=== PATIENT | male | born 1940 | race African-American/Black ===

== ENCOUNTER 2019-05-24 15:38 | Inpatient (IN) | payer OTHER ==
[~2019-05-24] VITALS: Ht 177.8 cm; Wt 91.5 kg
[2019-05-24 15:45] VITALS: BP 106/55
[2019-05-24 16:28] LABS: ABSOLUTE NEUTROPHILS 8.8 thou/uL (1.4-8.2); BASOPHILS 0.4 % (0.0-2.0); EOSINOPHILS 0.2 % (0.0-3.0); HEMATOCRIT 45.1 % (42.0-52.0); HEMOGLOBIN 14.9 gm/dL (14.0-18.0); LYMPHOCYTES 6.8 % (24.0-44.0); MCH 30.8 pg (26.0-34.0); MCV 93.4 fL (80.0-100.0); MONOCYTES 2.5 % (1.0-8.0); PLATELET COUNT 158 thou/uL (150-400); POLYS 90.1 % (36.0-66.0); RBC 4.83 mil/uL (4.50-6.00); RDW 15.4 % (10.5-14.5); WBC 9.8 thou/uL (4.0-11.0)
[2019-05-24 16:39] LABS: CALCIUM 8.5 mg/dL (8.5-10.1); CREATININE 3.4 mg/dL (0.7-1.3); POTASSIUM 3.3 mmol/L (3.5-5.1)
[2019-05-24 16:45] LABS: ALBUMIN 3.2 g/dL (3.4-5.0); TOTAL BILIRUBIN 0.6 mg/dL (<0.1-1.0); TOTAL PROTEIN 6.9 g/dL (6.4-8.2)
[2019-05-24 16:47] LABS: LIPASE 55 U/L (73-393); TROPONIN-I <0.06 ng/mL (<0.06)
[2019-05-24 16:48] LABS: APTT 31.6 Seconds (24.5-32.8); INR 1.2; PROTIME 11.9 Seconds (9.3-11.4)
[2019-05-24] MEDS ORDERED: SEVELAMER HCL800 MG PO (18:59)
[2019-05-24] MEDS ORDERED: NEURONTIN 300300 M1 PO (19:01)
[2019-05-24] MEDS ORDERED: RENA-VITE RX T1 EACH PO (19:01)
[2019-05-24] MEDS ORDERED: ELIQUIS2.5 MG PO (19:02)
[2019-05-24] MEDS ORDERED: ALLOPURINOL 10100 M3 PO (19:02)
[2019-05-24] MEDS ORDERED: OCUFLOX5 ML OPHTHALMIC (19:03)
[2019-05-24 19:24] VITALS: BP 103/50
[2019-05-24 19:43] VITALS: BP 101/58
--- NOTE | 2019-05-24 19:44 | NUR ---
[facility] [phone]
[2019-05-24 19:46] LABS: CHOLESTEROL 112 mg/dL (<200); HDL CHOLESTEROL 44 mg/dL (>40); LDL CHOLESTEROL 57 mg/dL (<100); TC:HDL 2.5 Ratio (Not establshd); TRIGLYCERIDE 57 mg/dL (<150); VLDL 11 mg/dL (<40)
[2019-05-24 19:47] LABS: SERUM ASSESSMENT Clear
[2019-05-24 20:11] VITALS: BP 119/67
[2019-05-24 20:11] LABS: TSH 2.361 uIU/mL (0.358-3.740)
[2019-05-24 23:20] VITALS: BP 88/43
[2019-05-25 04:44] VITALS: BP 82/42
[2019-05-25 05:07] LABS: GLYCOHEMOGLOBIN (HGB A1C) 5.7 % (4.8-5.6)
[2019-05-25 05:26] LABS: BASOPHILS 0.2 % (0.0-2.0); EOSINOPHILS 0.6 % (0.0-3.0); LYMPHOCYTES 11.1 % (24.0-44.0); MCH 31.2 pg (26.0-34.0); MCHC 33.1 g/dL (28.0-37.0); MCV 94.3 fL (80.0-100.0); MONOCYTES 11.8 % (1.0-8.0); PLATELET COUNT 140 thou/uL (150-400); POLYS 76.3 % (36.0-66.0); RBC 4.14 mil/uL (4.50-6.00); RDW 15.1 % (10.5-14.5); WBC 10.5 thou/uL (4.0-11.0)
[2019-05-25 05:33] LABS: HEMOGLOBIN 12.9 gm/dL (14.0-18.0)
[2019-05-25 05:49] LABS: ALBUMIN 2.5 g/dL (3.4-5.0); CALCIUM 8.4 mg/dL (8.5-10.1); MAGNESIUM 1.9 mg/dL (1.8-2.4); PHOSPHORUS 3.8 mg/dL (2.5-4.9); TOTAL BILIRUBIN 0.5 mg/dL (<0.1-1.0); TOTAL PROTEIN 6.2 g/dL (6.4-8.2)
[2019-05-25 05:54] LABS: CREATININE 4.5 mg/dL (0.7-1.3)
--- NOTE | 2019-05-25 06:37 | NUR ---
ASSUMED CARE OF PATIENT FROM ER. ADMISSION COMPLETE. DIALYSIS NEEDLE STILL IN LEFT ARM. DR TANG ABSNatalia IN TO SEE PATIENT. REQUESTED HOSPITALIST TO DC PATIENT BACK TO [facility]. WILL LET AM NURSE KNOW. NO S/S OF INFECTION.
[2019-05-25 08:02] VITALS: BP 97/42
[2019-05-25 08:48] VITALS: BP 95/57
[2019-05-25 11:58] VITALS: BP 99/51
--- NOTE | 2019-05-25 12:13 | EKG ---
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: [facility] : 1940 Requested By: Aislinn Mora Order Number: [id number] MD: Manish Eaton Measurements Intervals [place] Rate: 89 P: -41 MA: 243 QRS: -58 QRSD: 132 T: 130 QT: 400 QTc: 487 Interpretive Statements Sinus rhythm Prolonged MA interval Left bundle branch block No previous ECG available for comparison Electronically Signed On 05-25-2019 12:12:13 CDT by Manish Eaton [email or web address] <ELECTRONICALLY SIGNED> By: Manish Eaton MD 05/25/19 1212 1554 1554 Manish Eaton MD /ROMEO
[2019-05-25 15:34] VITALS: BP 106/62; BP 115/59; BP 95/54
--- NOTE | 2019-05-25 18:09 | NUR ---
ASSUMMED PT CARE AT APPROXIMATELY 0700. PT A&O X4 AND OCCASIONALLY FORGETFUL. ASSESSMENT CHARTED. FALL PRECAUTIONS IN PLACE. PT DENIES HAVING CHEST PAIN. PT DENIES HAVING ACUTE PAIN. EDUCATED PT AND PT'S FAMILY ABOUT POC. PT AND PT'S FAMILY STATED UNDERSTANDING AND DENIED HAVING FURTHER QUESTIONS. INFORMED DR. BOONE OF PT'S HYPOGLYCEMIA AND HYPOTENSION. DR. BOONE STATED UNDERSTANDING. DR. BOONE ORDERED NEW MEDICATIONS. NEW MEDS IMPLEMENTED. INFORMED DR. BOONE OF PT'S ORTHOSTATIC BP. DR. BOONE STATED UNDERSTANDING AND DENIED HAVING NEW ORDERS. MRI AUTHORIZATION SHEET SENT TO RADIOLOGY. SPOKE C MARY PRO SHOP ATTENDANT TO AUTHORIZE STAT MRI. REFERENCE DATA EXPERT STATED SHE WOULD CALL IN MRI STAFF. PT REQUESTED EYE DROPS DUE TO DRY EYES. INFORMED DR. BOONE. DR. BOONE ADDED NEW ORDERS. IMPLEMENTED EYE DROPS. PT AMBULATED STEADY C PT TODAY. PT UP IN CHAIR THROUGHOUT SHIFT TODAY. PT COMFORTABLE IN BED. PT DENIES HAVING FURTHER CONCERNS.
[2019-05-25 20:44] VITALS: BP 114/55
[2019-05-26] VITALS (10 sets, daily range): BP systolic 114–154; BP diastolic 55–71
[2019-05-26 02:06] LABS: GLYCOHEMOGLOBIN (HGB A1C) 6.7 % (4.8-5.6)
[2019-05-26 05:14] LABS: HEMATOCRIT 38.8 % (42.0-52.0); HEMOGLOBIN 12.8 gm/dL (14.0-18.0); PLATELET COUNT 136 thou/uL (150-400); RBC 4.13 mil/uL (4.50-6.00); WBC 6.5 thou/uL (4.0-11.0)
[2019-05-26 05:19] LABS: CALCIUM 8.9 mg/dL (8.5-10.1); POTASSIUM 4.4 mmol/L (3.5-5.1)
--- NOTE | 2019-05-26 05:19 | NUR ---
ASSESSMENT DOCUMENTED.PT BEEN RESTING IN NO ACUTE DISTRESS.A/OX4.VSS.BLOOD GLUCOSE BEEN STABLE.DENIES SYNCOPE OR DIZZINESS SPELLS.BLOOD PRESSURE WNL.UP W/ASSIST TO BR.DENIES ANY NEEDS.WILL CONT TO MONITOR PER POC.
[2019-05-26 05:31] LABS: CREATININE 5.9 mg/dL (0.7-1.3)
[2019-05-26 08:01] LABS: ABSOLUTE NEUTROPHILS 4.6 thou/uL (1.4-8.2)
[2019-05-26 08:02] LABS: ANISOCYTOSIS SLIGHT
--- NOTE | 2019-05-26 18:25 | NUR ---
ASSUMMED PT CARE AT APPROXIMATELY 0700. PT A&O X4. FORGETFUL AT TIMES. ASSESSMENT CHARTED. FALL PRECAUTIONS IN PLACE. PT DENIES HAVING CHEST PAIN. PT DENIES HAVING SOB. PT DENIES HAVING ACUTE PAIN. EDUCATED PT AND PT'S FAMILY ABOUT POC. PT AND PT'S FAMILY STATED UNDERSTANDING AND DENIED HAVING FURTHER QUESTIONS. RADIOLOGY STATED MRI WOULD HAVE TO WAIT TILL MONDAY DUE TO PT HAVING DEFIBRILLATOR. PT UP TO CHAIR THROUGHOUT SHIFT. PT AMBULATES STEADY C CANE. VITAL SIGNS STABLE. BLOOD SUGARS STABLE. PT COMFORTABLE. PT DENIES HAVING FURTHER CONCERNS.
[2019-05-27 05:14] VITALS: BP 135/63
--- NOTE | 2019-05-27 06:11 | NUR ---
ASSESSMENTS CHARTED, MEDS GIVEN CHARTED. PATIENT RESTING IN BED DURING SHIFT. SINUS RHYTHM WITH 1ST DEGREE AND BBB ON TELEMETRY, ON ROOM AIR. PATIENT IS ANURIC, GETS DIALYSIS MWF. PATIENT TRIED TO HAVE BOWEL MOVEMENT WITHOUT SUCCESS. UP WITH ASSIST AND CANE TO BSC. FISTULA IN LEFT UPPER ARM. ORTHOSTATIC BLOOD PRESSURES AND STANDING WEIGHT DONE DURING SHIFT. FALL PRECAUTION IN PLACE. DENIED PAIN DURING SHIFT.
--- NOTE | 2019-05-27 07:23 | HC ---
[facility] [place] [address] CONSULTATION Name: CLAUDETTE MAIN Room #: 217-P [facility] IN M.R.#: [id number] Admission: 05/24/19 Attend Phys: Salima Villarreal MD Discharge: Date of : 38 Report #: [id number] THIS REPORT FOR: cc: IMMANUEL [facility]afox family physician/PCP IMMANUEL [facility]ox family physician/PCP Balaji Lang MD ~ CC: IMMANUEL physician/PCP Salima Villarreal REASON FOR CONSULTATION: End-stage renal disease. REASON FOR PRESENTATION: Syncopal event after hemodialysis. HISTORY OF PRESENT ILLNESS: An 79-year-old with history of dementia, remote history of chronic hypotension. He is known to have atrial fibrillation. He dialyzes every Monday, Monday and Monday. Apparently, the dialysis unit had been aggressive with his ultrafiltration and the patient developed what seems to be syncopal episodes. This was associated with a fall backward in the dialysis unit. The patient presented to the Emergency Room where he was found to be extremely hypotensive related to his ultrafiltration. His blood pressure was in the 60s range on his presentations. He was also found to be hypoglycemic. He was admitted for further evaluation and management. PAST MEDICAL HISTORY: 1. AFib. 2. Hypotension. 3. End-stage renal disease. SURGICAL HISTORY: AV fistula. ALLERGIES: None. MEDICATIONS: 1. Eliquis. 2. Gabapentin. 3. Allopurinol. 4. Sevelamer. SOCIAL HISTORY: Lives at the [facility]. PHYSICAL EXAMINATION: VITAL SIGNS: Blood pressure is 123/58, temperature is 36.8, pulse rate is 66, respiratory rate is 18. HEAD AND NECK: No jugular venous distention. CHEST: No crackles. CARDIOVASCULAR: No rub. ABDOMEN: Soft, nontender. [facility] [address] [place] [address] CONSULTATION Name: CLAUDETTE MAIN Room #: 217-P [facility] IN M.R.#: [id number] Admission: 05/24/19 Attend Phys: Salima Villarreal MD Discharge: Date of : 38 Report #: [id number] LOWER EXTREMITIES: No edema. NEUROLOGICAL: Completely alert and oriented. LABORATORY DATA: Sodium 132, potassium 4.4, BUN is 38, creatinine is 5.9. Blood sugar is 82 CT head and cervical spine negative. ASSESSMENT AND PLAN 1. End-stage renal disease. 2. 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 3. We will continue with the usual hemodialysis every Monday, Monday and Monday. 4. Gentle ultrafiltration. 5. Hypoglycemia, resolved. 6. ____ neurological event. 7. Okay to discharge home from my side. <ELECTRONICALLY SIGNED> By: Balaji Lang MD 05/27/19 0723 0749 0941 Balaji Lang MD /nt
[2019-05-27 07:33] VITALS: BP 147/65
[2019-05-27 11:16] VITALS: BP 123/36
--- NOTE | 2019-05-27 13:34 | NUR ---
Sp with patient via phone. he resides at [facility]. He reports uses a quad cane for ambulation. He has caregiver 2 days a week for a few hours a day. He has a lift chair at home. He is to have MRI on . Therapy evmina report patient would benefit from HH care. Patient with no preference for HH care. [facility] if need HH at ca. PCP Dr Nico Ardon. [facility] MWF 1030. He drives himself to [facility]. He was taken to hospital from [facility] and his car still at [facility]. Updated [facility]. Casemgt following.
--- NOTE | 2019-05-27 14:49 | NUR ---
FAXED REFERRAL TO [facility] SPOKE WITH SMILEY IN INTAKE SHE RECEIVED REFERRAL AND CAN ACCEPT. DP TO FOLLOW.
[2019-05-27 18:14] VITALS: BP 123/36
--- NOTE | 2019-05-27 18:26 | NUR ---
ASSESSMENT DOCUMENTED, ALERT AND ORIENTED X4. DAILIZED TODAY AND VSS. SR/1AVB/BBB ON THE MONITOR. 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 AND WILL CONTNUE WITH POC.
[2019-05-27 19:38] VITALS: BP 140/62
--- NOTE | 2019-05-28 03:45 | NUR ---
A/O X 4.UP WITH ASSIST TO THE BATHROOM WITH THE LEWIS.NO LIGHTHEADEDNESS NOR DIZZINESS.DENIES PAIN AND SOB.DENIES ANY CONCERNS.POC CONTINUED.
[2019-05-28 04:23] VITALS: BP 176/75
[2019-05-28 07:42] VITALS: BP 129/83
[2019-05-28 08:41] VITALS: BP 129/83
--- NOTE | 2019-05-28 10:21 | 2DMMODE ---
[facility] [address] [employer] [email or web address] [address] 2 D/M-MODE ECHOCARDIOGRAM Name: CLAUDETTE MAIN Room #: 217-P ADM IN M.R.#: [id number] Admission: 05/24/19 Attend Phys: Salima Villarreal MD Discharge: Date of : 38 Report #: [id number] THIS REPORT FOR: cc: FAM - No family physician/PCP FAM - No family physician/PCP Rojas Arenas MD ~ APPROVED REPORT Study performed: 05/28/2019 08:44:51 EXAM: Comprehensive 2D, Doppler, and color-flow Echocardiogram Patient Location: Bedside Room #: 217 Status: routine BSA: 2.09 HR: 65 bpm BP: 176/75 mmHg Rhythm: Pacemaker Other Information Study Quality: Adequate Indications Question syncope. Hx: Afib, defibrillator, ESRD. 2D Dimensions RVDd: 36.10 mm IVSd: 13.00 (7-11mm) LVOT Diam: 22.14 (18-24mm) LVDd: 51.00 mm PWd: 12.00 (7-11mm) Ascending Ao: 34.87 (22-36mm) LVDs: 40.00 (25-40mm) Aortic Root: 36.27 mm Volumes Left Atrial Volume (Systole) Single Plane 4CH: 33.19 mL Single Plane 2CH: 55.63 mL LA ESV Index: 23.00 mL/m2 Aortic Valve AoV Peak Saad.: 1.05 m/s AO Peak Gr.: 4.42 mmHg LVOT Max P.29 mmHg LVOT Max V: 0.91 m/s OG Vmax: 3.32 cm2 [facility] [address] [place] [address] 2 D/M-MODE ECHOCARDIOGRAM Name: MAINCLAUDETTE Room #: 217-P [facility] IN [facility]#: [id number] Admission: 05/24/19 Attend Phys: Salima Villarreal, Discharge: Date of : 38 Report #: [id number] Mitral Valve E/A Ratio: 0.5 MV Decel. Time: 139.18 ms MV E Max Saad.: 0.59 m/s MV A Saad.: 1.27 m/s MV PHT: 40.36 ms IVRT: 141.87 ms Pulmonary Valve PV Peak Saad.: 0.77 m/s PV Peak Gr.: 2.35 mmHg Tricuspid Valve TR Peak Saad.: 2.74 m/s RAP Estimate: 5.00 mmHg TR Peak Gr.: 30.04 mmHg PA Pressure: 35.00 mmHg Left Ventricle The left ventricle is normal size. Mild concentric left ventricular hypertrophy. Left ventricular systolic function is normal. LVEF is 50-55%. Mild diastolic dysfunction is present (impaired relaxation pattern). Right Ventricle The right ventricle is normal size. The right ventricular systolic function is normal. Atria The left atrium size is normal. The right atrium size is normal. Aortic Valve Aortic valve is mildly calcified. No aortic regurgitation is present. There is no aortic valvular stenosis. Mitral Valve The mitral valve is normal in structure. Mild mitral annular calcification. Mild mitral regurgitation. No evidence of mitral valve stenosis. Tricuspid Valve The tricuspid valve is normal in structure. Trace tricuspid regurgitation. Estimated PAP is 35mmHg. Pulmonic Valve Pulmonic valve is not well visualized. [facility] [address] [place] [address] 2 D/M-MODE ECHOCARDIOGRAM Name: CLAUDETTE MAIN Room #: 217-P [facility] IN .R.#: [id number] Admission: 05/24/19 Attend Phys: Salima Villarreal, Discharge: Date of : 38 Report #: [id number] Great Vessels The aortic root is normal in size. The ascending aorta is normal in size. IVC is normal in size and collapses >50% with inspiration. Pericardium There is no pericardial effusion. <Conclusion> The left ventricle is normal size. LVEF is 50-55%. The left atrium size is normal. Aortic valve is mildly calcified. There is no aortic valvular stenosis. No aortic regurgitation is present. The mitral valve is normal in structure. Mild mitral annular calcification. Mild mitral regurgitation. The tricuspid valve is normal in structure. Trace tricuspid regurgitation. Estimated PAP is 35mmHg. Pulmonic valve is not well visualized. There is no pericardial effusion. <ELECTRONICALLY SIGNED> By: Rojas Arenas MD 05/28/19 1020 1020 1020 Rojas Arenas MD /INF
[2019-05-28 11:58] VITALS: BP 155/63
[2019-05-28 16:42] VITALS: BP 172/62
--- NOTE | 2019-05-28 18:06 | NUR ---
DENIES ANY CONCERNS OR DISCOMFORT, BP 172/60 DR RUSSELL PAGED AND WILL CONTINUE WITH POC.
[2019-05-28 20:45] VITALS: BP 144/69
[2019-05-29 00:15] VITALS: BP 149/77
[2019-05-29 04:42] VITALS: BP 165/78
--- NOTE | 2019-05-29 05:14 | NUR ---
ASSESSMENTS CHARTED, MEDS GIVEN CHARTED. PATIENT RESTING IN ROOM DURING SHIFT. SINUS RHYTHM WITH 1ST DEGREE AND BUNDLE BRANCH BLOCK DURING SHIFT. PATIENT HAS ICD/PM. PATIENT SCHEDULED FOR DIALYSIS TODAY, FISTULA IN LEFT UPPER ARM. ANURIC. HAD LARGE BOWEL MOVEMENT THIS MORNING. UP WITH STANDBY ASSIST AND CANE TO BSC. PLAN IS TO HAVE A MRI AFTER DIALYSIS THEN GO HOME.
[2019-05-29 07:52] VITALS: BP 146/68
[2019-05-29 11:20] VITALS: BP 115/63
--- NOTE | 2019-05-29 13:48 | NUR ---
patient to have MRI in am and possible dc home with HH. Casemgt following.
--- NOTE | 2019-05-29 14:52 | NUR ---
ASSESSMENT CHARTED. PT ALERT AND ORIENTED WITH FORGETFULNESS. VSS. DENIED HAVING PAIN OR DISCOMFORT. HAD DIALYSIS THIS AM. MRI SCHEDULED FOR AM. PLAN TO BE DISCHARGE IN AM. WILL CONTINUE TO MONITOR.
[2019-05-29 16:24] VITALS: BP 156/61
[2019-05-29 19:19] VITALS: BP 152/64
[2019-05-30] VITALS (9 sets, daily range): BP systolic 155–175; BP diastolic 57–71
--- NOTE | 2019-05-30 03:40 | NUR ---
ASSESSMENT DOCUMENTED.PT BEEN RESTING IN NO ACUTE DISTRESS.A/OX4.VSS.PT DENIES NEEDS THIS SHIFT.POC IS TO HAVE MRI THIS AM AND THEN DISCHARGE TO HOME.WILL CONT TO MONITOR PER POC.
[2019-05-30] MEDS ORDERED: NORVASC5 MG PO (10:47)
--- NOTE | 2019-05-30 12:08 | NUR ---
Jazlyn to dc home today with HH care. Sp with patient in room and discussed post acute care for cont therapy and offered options. Patient wants to return home. He is agreeable to HH care and has no preference of HH agency. Referral to [facility] and patient reports that is fine. [facility]. patient reports he has a ride to me home and plans to drive his car home from dialysis clinic when at dialysis. Updated Lucy at dialysis clinic of patients plan she is agreeable. Faxed H/P and dc orders/summary to dialysis clinic they rec.
--- NOTE | 2019-05-30 13:16 | NUR ---
PT DISCHARGING TODAY TO HOME WITH [facility] FAXED DC ORDERS/SUMMARY SPOKE WITH [facility]P IN INTAKE SHE RECEIVED ORDERS AND WILL NOTIFY PT TIME OF VISITS.
--- NOTE | 2019-05-30 14:14 | NUR ---
[facility] needs documetation of patient no longer with communicable diseases prior to patients return. Dictated progress note faxed to [facility]. So with [facility] who reports patient can return.
[2019-05-30] MEDS ORDERED: ASPIRIN325 PO (15:08)
[2019-05-30] MEDS ORDERED: CYMBALTA30 MG PO (15:08)
--- NOTE | 2019-05-30 15:26 | NUR ---
ASSESSMENT CHARTED. PT ALERT AND ORIENTED. VSS. DENIED HAVING PAIN OR DISCOMFORT. HAD MRI THIS AM. ORDERS GIVEN TO DISCHARGE PT TO HOME WITH HH. DISCHARGE INSTRUCTIONS GIVEN TO PT. DAUGHTER UPDATED ON DISCHARGE PLAN.
== END 2019-05-30 15:44 | disposition home health service (06) | DRG 314 ==
LOC: ER 15:38 → 2N 18:01 → EROBS 18:01 → 2N 19:50
PROVIDERS: Physician Assistant; ADMIT Internal Medicine
PROC: 5A1D70Z Performance of Urinary Filtration, Intermittent, Less than 6 Hours Per Day (ICD-10-PCS; principal; 2019-05-27)
DX: I95.9 Hypotension, unspecified (principal); N18.6 End stage renal disease; I12.0 Hypertensive chronic kidney disease with stage 5 chronic kidney disease or end stage renal disease; E44.0 Moderate protein-calorie malnutrition; E16.2 Hypoglycemia, unspecified; G62.9 Polyneuropathy, unspecified; R55 Syncope and collapse; S09.90XA Unspecified injury of head, initial encounter; W18.39XA Other fall on same level, initial encounter; E87.6 Hypokalemia; F03.90 Unspecified dementia, unspecified severity, without behavioral disturbance, psychotic disturbance, mood disturbance, and anxiety; I48.0 Paroxysmal atrial fibrillation; E11.22 Type 2 diabetes mellitus with diabetic chronic kidney disease; R20.0 Anesthesia of skin; Y92.89 Other specified places as the place of occurrence of the external cause; Y93.89 Activity, other specified; Y99.8 Other external cause status; Z82.49 Family history of ischemic heart disease and other diseases of the circulatory system; Z68.28 Body mass index [BMI] 28.0-28.9, adult; Z79.01 Long term (current) use of anticoagulants; Z79.2 Long term (current) use of antibiotics; Z79.899 Other long term (current) drug therapy
CPT/HCPCS: 10081; 10797; 32100

== ENCOUNTER 2019-12-20 09:58 | Emergency (ER) | payer OTHER ==
[~2019-12-20] VITALS: Ht 177.8 cm; Wt 88.9 kg
[~2019-12-20 09:58] MED LIST: ALLOPURINOL 10100 M3 PO; ASPIRIN325 PO; CYMBALTA30 MG PO; ELIQUIS2.5 MG PO; NEURONTIN 300300 M1 PO; NORVASC5 MG PO; OCUFLOX5 ML OPHTHALMIC; RENA-VITE RX T1 EACH PO; SEVELAMER HCL800 MG PO
[2019-12-20 11:10] LABS: HEMATOCRIT 36.5 % (42.0-52.0); HEMOGLOBIN 11.6 gm/dL (14.0-18.0); MCH 28.7 pg (26.0-34.0); MCHC 31.8 g/dL (28.0-37.0); MCV 90.4 fL (80.0-100.0); PLATELET COUNT 129 thou/uL (150-400); RBC 4.04 mil/uL (4.50-6.00); RDW 18.9 % (10.5-14.5); WBC 3.2 thou/uL (4.0-11.0)
[2019-12-20] MEDS ORDERED: ELIQUIS2.5 MG PO (11:16)
[2019-12-20 11:34] LABS: CALCIUM 9.4 mg/dL (8.5-10.1); CREATININE 6.1 mg/dL (0.7-1.3); POTASSIUM 4.6 mmol/L (3.5-5.1)
[2019-12-20 12:10] LABS: ABSOLUTE NEUTROPHILS 1.4 thou/uL (1.4-8.2); PLATELET ESTIMATE NORMAL
[2019-12-20 12:11] LABS: ANISOCYTOSIS 1+
[2019-12-20 12:52] VITALS: BP 132/69
== END 2019-12-20 12:58 | disposition home or self-care (01) ==
LOC: ER 09:58
PROVIDERS: Emergency Medicine
DX: R53.83 Other fatigue (principal); J02.9 Acute pharyngitis, unspecified; I12.0 Hypertensive chronic kidney disease with stage 5 chronic kidney disease or end stage renal disease; N18.6 End stage renal disease; Z99.2 Dependence on renal dialysis; I48.91 Unspecified atrial fibrillation; Z79.899 Other long term (current) drug therapy; Z79.82 Long term (current) use of aspirin; Z79.2 Long term (current) use of antibiotics